=== PATIENT | female | born 1940 | race Caucasian/White ===

== ENCOUNTER 2018-05-02 08:35 | Emergency (ER) | payer OTHER, MEDICARE ==
[~2018-05-02] VITALS: Ht 157.5 cm; Wt 81.6 kg
--- NOTE | 2018-05-02 09:05 | ED UPPER/LOWER EXTREMITY COMPL ---
History of Present Illness General Chief Complaint: Lower Extremity Injury Stated Complaint: LEFT KNEE PAIN/RASH ALL OVER BODY Source: patient, old records Exam Limitations: no limitations Vital Signs & Intake/Output Vital Signs & Intake/Output Vital Signs Date Time Temp Pulse Resp B/P B/P Pulse O2 O2 Flow FiO2 Mean Ox Delivery Rate 05/02 0843 96.9 84 20 138/82 99 Room Air Allergies Coded Allergies: No Known Drug Allergies (Intermediate, NONE 05/02/18) Triage Note: C/O PAIN IN LEFT KNEE X 3 WEEKS, S/P FALL, ALS0 C/O RASH ON ARMA AND CHEST X 3 WEEKS, DENIES SOB OR MEDICATION CHANGE. Triage Nurses Notes Reviewed? yes HPI: Patient presents with 2 complaints. Her first complaint is left knee pain. Patient states that the pain started in September when she tripped and fell landing on her left knee. Patient states that the pain is constant and increases with ambulation. There is no radiation. She rates the pain as moderate on the pain scale. Patient states that she feels like she is walking bent over because she feels that she cannot straighten up because the pain. Patient states that she feels safe at home and is able to her activities of daily living. Patient has not spoken her primary care physician about this at all. Patient's other complaint is a rash on her arms that is spreading onto her chest that started approximately 3 weeks ago after gardening. The rash is itchy. There is no pain. There is no difficulty breathing or swallowing. Past History Travel History Traveled to [place] past 21 day No Medical History Any Pertinent Medical History? see below for history Cardiovascular: hypertension Musculoskeletal: osteoarthritis Surgical History Surgical History: non-contributory Psychosocial History Tobacco Use: Never used ETOH Use: denies use Illicit Drug Use: denies illicit drug use Family History Hx Contributory? No Review of Systems Review of Systems Constitutional: Reports: no symptoms. EENTM: Reports: no symptoms. Respiratory: Reports: no symptoms. Cardiovascular: Reports: no symptoms. Gastrointestinal/Abdominal: Reports: no symptoms. Genitourinary: Reports: no symptoms. Musculoskeletal: Reports: see HPI, joint pain, joint swelling. Skin: Reports: see HPI, rash. Neurological/Psychological: Reports: no symptoms. Hematologic/Endocrine: Reports: no symptoms. Immunological: Reports: no symptoms. All Other Systems: Reviewed and Negative Physical Exam Physical Exam General Appearance: well developed/nourished, mild distress Head: atraumatic Eyes: Bilateral: PERRL, EOMI. Ears, Nose, Throat: normal pharynx, normal ENT inspection, hearing grossly normal Neck: normal inspection, supple, no midline tenderness Cardiovascular/Respiratory: normal breath sounds, normal peripheral pulses, regular rate/rhythm, no respiratory distress Back: normal inspection Knee Left: swelling, tenderness, pain, soft tissue tenderness Knee Ligaments Left: STABLE Skin: intact, normal color, warm/dry, rash Lymphatic: no anterior cervical david Progress Differential Diagnosis: contusion, fracture, sprain, tendon injury, CONTACT DERMATITIS Plan of Care: Orders Procedure Date/time Status XRY-KNEE COMPLETE LEFT 05/02 905 Active Diagnostic Imaging: Viewed by Me: Radiology Read. Discussed w/RAD: Radiology Read. Radiology Impression: PATIENT: TOO ZAMORANO PRESENT AGE : 77 PATIENT ACCOUNT NO: [id number] : 42 LOCATION: [facility] ORDERING PHYSICIAN: Jaylen Stoll MD SERVICE DATE: 05/02/18 EXAM TYPE: RAD - XRY-KNEE COMPLETE LEFT EXAMINATION: XR KNEE, LEFT CLINICAL INFORMATION: Performed persistent pain since fall months ago. COMPARISON: None TECHNIQUE: Four views of the left knee. FINDINGS: There is been prior total knee arthroplasty. The hardware is intact. There is lucency at the cement-bone interface medial side of tibial prosthesis ranging in thickness 2.0-2.8 mm. Chronicity is unknown. Correlation with prior postoperative radiographs is recommended. There is no acute or healing fracture or dislocation. There is small capsular effusion. There is thickening of the patellar tendon probable edema in the superficial soft tissues overlying the patellar tendon and lower patella pole. IMPRESSION: 1. Prior total knee arthroplasty. Hardware intact. No fracture or dislocation. 2. Lucency at cement-bone interface medial side of the tibial prosthesis 2.0-2.8 mm of uncertain chronicity. No prior studies. 3. Thickening patella tendon with probable edema in the superficial soft tissues overlying the patellar tendon and lower patellar pole. DICTATED BY: Vinod Daniels MD DATE/TIME DICTATED:05/02/18924 RESEARCH BIOSTATISTICIAN:DILLON DATE/TIME TRANSCRIBED:05/02/18924 CONFIDENTIAL, DO NOT COPY WITHOUT APPROPRIATE AUTHORIZATION. <Electronically signed in Other Vendor System> SIGNED BY: Vinod Daniels MD 05/02/18 0942 Departure Departure Disposition: HOME OR SELF CARE Condition: Stable Clinical Impression Primary Impression: Left knee pain Secondary Impressions: Contact dermatitis Referrals: Olivia CARDONA,Ryley Yeung MD,Kevin Johnson (PCP/Family) Additional Instructions: FOLLOW UP WITH ORTHOPEDIST REUTNR IF SYMPTOMS WORSEN OR FOR ANY CONCERNS Departure Forms: Customer Survey General Discharge Information Prescriptions: Current Visit Scripts Prednisone 1 TAB PO DAILY #18 TAB tAKE 3 TABS A DAY FOR 3 DAYS AND TAKE 2 TABS DAILY FOR 3 DAYS AND TAKE 1 TABLET DAILY FOR 3 DAYS. Hydroxyzine Hydrochloride (Atarax) 1 TAB PO Q6P PRN ITCH #30 TAB
--- NOTE | 2018-05-02 09:42 | RADIOLOGY REPORT ---
EXAMINATION: XR KNEE, LEFT CLINICAL INFORMATION: Performed persistent pain since fall months ago. COMPARISON: None TECHNIQUE: Four views of the left knee. FINDINGS: There is been prior total knee arthroplasty. The hardware is intact. There is lucency at the cement-bone interface medial side of tibial prosthesis ranging in thickness 2.0-2.8 mm. Chronicity is unknown. Correlation with prior postoperative radiographs is recommended. There is no acute or healing fracture or dislocation. There is small capsular effusion. There is thickening of the patellar tendon probable edema in the superficial soft tissues overlying the patellar tendon and lower patella pole. IMPRESSION: 1. Prior total knee arthroplasty. Hardware intact. No fracture or dislocation. 2. Lucency at cement-bone interface medial side of the tibial prosthesis 2.0-2.8 mm of uncertain chronicity. No prior studies. 3. Thickening patella tendon with probable edema in the superficial soft tissues overlying the patellar tendon and lower patellar pole.
[2018-05-02] MEDS ORDERED: HYDROXYZINE HCL25 M2 PO (09:54)
[2018-05-02] MEDS ORDERED: PREDNISONE10 M2 PO (09:54)
[2018-05-02 10:03] VITALS: BP 134/76
== END 2018-05-02 10:04 ==
LOC: ERH 08:35
DX: M25.562 Pain in left knee (principal); L25.9 Unspecified contact dermatitis, unspecified cause
CPT/HCPCS: 73562-LT